=== PATIENT | male | born 1940 | race Hispanic/Latino ===

== ENCOUNTER 2017-10-30 05:55 | Day surgery (SDC) | payer MEDICARE, BC ==
[2017-10-16 09:52] VITALS: BMI 25.5
[2017-10-30] MEDS ORDERED: Propofol 10 mg/ml Inj (20 ML) ONE ×2 (07:27→08:22)
[2017-10-30] MEDS ORDERED: Iohexol 240 (50 ml) ONE (07:27)
[2017-10-30] MEDS ORDERED: Lidocaine 2% Jelly (Uro-Jet) ONE (07:27)
[2017-10-30] MEDS ORDERED: cefTRIAXone IV 1 gm in Dextros 50 ML IVPB ONE (07:27)
--- NOTE | 2017-10-30 09:09 | PCM.SURG1 ---
Surgeon's Initial Post Op Note - Surgeon's Notes Surgeon: Ilir Garcia Primary Class Teacher: none Type of Anesthesia: General LMA Pre-Operative Diagnosis: Hx of bladder tumor. Bladder neck nodule Operative Findings: same. BPH Post-Operative Diagnosis: same Operation Performed: cystoscopy, TUR-BN Specimen/Specimens Removed: urine, BN Estimated Blood Loss: EBL {In ML}: 10 Blood Products Given: N/A Post-Op Condition: Good Date of Surgery/Procedure: 10/30/17 Time of Surgery/Procedure: 08:50
[2017-10-30] MEDS: HYDROmorphone 0.5 mg/0.5 ml ISec IVP PRN ×2 (09:10→09:35)
[2017-10-30 11:04] VITALS: O2SAT 96
[2017-10-30 11:57] VITALS: BP 135/60; PULSE 66; RESP 20; TEMP 97.7
--- NOTE | 2017-10-30 14:35 | RAD ---
HISTORY: HX. OF BLADDER TUMOR COMPARISON: No prior. FINDINGS: BOWEL: Normal. No obstruction. No free air. BONES: Normal. OTHER FINDINGS: None. IMPRESSION: No significant or acute findings to account for/ related to the clinical presentation.
--- NOTE | 2017-11-02 07:17 | OP ---
PROCEDURE DATE: 10/30/2017 PREOPERATIVE DIAGNOSES: 1. History of bladder tumor. 2. Abnormal bladder mucosa at bladder neck. POSTOPERATIVE DIAGNOSES: 1. History of bladder tumor. 2. Abnormal bladder mucosa at bladder neck. 3. Benign prostatic hypertrophy. PROCEDURES: 1. Cystoscopy. 2. Transurethral resection of bladder neck. OPERATING SURGEON: Sonam Garcia MD DESCRIPTION OF PROCEDURE: The patient was placed in lithotomy position. The genitalia were prepped and draped in sterile fashion. The patient received perioperative antibiotics. Anesthesia was provided by the anesthesiologist. A 22-Bolivian cystoscope sheath was introduced under direct vision. Urethra, prostate, and bladder were inspected with 30-degree and 70-degree lenses. FINDINGS: There was no stricture in the anterior leaflet. There was evidence of lateral lobe prostatic hypertrophy. The prostatic urethra was approximately 3 cm in length and occlusive. There were no mucosal lesions within the urethra or prostate. There was no bladder neck contraction. The bladder was mildly trabeculated. There was mild inflammation on the floor of the bladder. There was no papillary bladder tumor. The trigone was normal. The ureteral orifices could not be identified. There was mucosal abnormality with nodularity at the bladder neck. The cystoscope sheath was removed. A 26-Bolivian continuous flow resectoscope sheath was introduced under direct vision using the visual obturator. The resectoscope was then inserted. The abnormal tissue at the bladder neck was resected. Fulguration was performed with electrocautery using the loop. Fulguration was complete. Hemostasis was complete. The bladder neck specimen was removed using the evacuator. The bladder was reinspected. There were no residual specimen chips within the bladder. Urine had been sent for bacteriologic and cytologic examination. The resectoscope and sheath were removed. Dueñas catheter was inserted. Bladder drainage was clear. Rectal examination/main exam under anesthesia was performed. There was no abnormal pelvic mass fixation or induration. Prostate was enlarged, approximately 30 gm in size, without fixation, induration, or nodularity. The patient was returned to the supine position. The patient tolerated the procedure without complication. Sonam Garcia MD
== END 2017-10-30 11:50 | disposition home or self-care (01) ==
LOC: C.SDS 05:55
PROVIDERS: ATTEND Urology
DX: C67.9 Malignant neoplasm of bladder, unspecified (principal); D49.4 Neoplasm of unspecified behavior of bladder; N40.0 Benign prostatic hyperplasia without lower urinary tract symptoms
CPT/HCPCS: 52500; 74018; 82948; 87086; 88104; 88305; J0696; J1170